=== PATIENT | female | born 1960 | race Caucasian/White ===

== ENCOUNTER 2017-05-31 12:06 | Emergency (ER) | payer OTHER ==
[~2017-05-31] VITALS: Ht 167.6 cm; Wt 56.0 kg
[2017-05-31] MEDS ORDERED: MOTRIN800 MG PO (14:51)
[2017-05-31] MEDS ORDERED: ULTRACET1 TABLET PO (14:51)
[2017-05-31] MEDS ORDERED: VALIUM2 MG PO (14:51)
[2017-05-31 15:04] VITALS: BP 149/98
== END 2017-05-31 15:08 | disposition home or self-care (01) ==
LOC: EME 12:06
DX: M54.42 Lumbago with sciatica, left side (principal); G89.29 Other chronic pain
CPT/HCPCS: 99281; 99284

== ENCOUNTER 2017-09-17 20:59 | Emergency (ER) | payer OTHER ==
[~2017-09-17] VITALS: Ht 167.6 cm; Wt 57.6 kg
[~2017-09-17 20:59] MED LIST: MOTRIN800 MG PO; ULTRACET1 TABLET PO; VALIUM2 MG PO
[2017-09-17 23:37] LABS: APPEARANCE CLEAR ((CLEAR)); BILIRUBIN NEGATIVE; BLOOD NEGATIVE; COLOR YELLOW ((YELLOW)); GLUCOSE (STRIP) NEGATIVE; KETONES NEGATIVE; LEUKOCYTES NEGATIVE; NITRITE NEGATIVE; PROTEIN (STRIP) NEGATIVE; SPECIFIC GRAVITY 1.028 (1.000-1.030); UCUL ADDED? NO
[2017-09-18 00:19] LABS: HEMATOCRIT 38.8 % (36.0-46.0); HEMOGLOBIN 13.1 G/DL (11.9-15.5); MCH 30.3 PG (29.0-34.0); MCHC 33.8 G/DL (30.0-36.0); MCV 89.8 FL (83-99); PLATELET COUNT 159 K/uL (156-360); RBC DIS.WIDTH-CV 11.6 % (11.8-14.6); RED BLOOD COUNT 4.32 M/uL (3.80-5.20); WHITE BLOOD COUNT 3.7 K/uL (4.1-10.2)
[2017-09-18 00:37] LABS: ALBUMIN 3.8 g/dL (3.2-4.8); CHLORIDE 104 mEq/L (99-109); POTASSIUM 4.3 mEq/L (3.7-5.4); SODIUM 137 mEq/L (136-147)
[2017-09-18 00:39] LABS: GLUCOSE 88 mg/dL (70-99)
[2017-09-18 00:41] LABS: TOTAL BILIRUBIN 0.4 mg/dL (0.0-1.0)
[2017-09-18 00:43] LABS: ALKALINE PHOSPHATASE 73 IU/L (3-129); CREATININE 0.7 mg/dL (0.6-1.3); GFR ESTIMATE (CALCULATED) > 59 mL/min/; TROP-I INTERPRETATION NEGATIVE; TROPONIN-I < 0.01 ng/mL (0.0-0.30)
[2017-09-18 00:44] LABS: UREA NITROGEN (BUN) 18 mg/dL (9-23)
[2017-09-18 00:45] LABS: AST (GOT) 23 IU/L (2-34)
[2017-09-18 00:46] LABS: ALT (GPT) 13 IU/L (3-49); LIPASE 13 U/L (1.0-51.0)
[2017-09-18] MEDS ORDERED: LIDODERM 5% P1 PATCH TD (00:58)
[2017-09-18] MEDS ORDERED: ULTRAM50 MG PO (01:01)
[2017-09-18 01:21] VITALS: BP 144/87
== END 2017-09-18 01:22 | disposition home or self-care (01) ==
LOC: EXP 20:59 → EME 20:59 → EXP 09-18 01:22
PROVIDERS: Nurse Practitioner Family
DX: G89.29 Other chronic pain (principal); M54.9 Dorsalgia, unspecified; R07.9 Chest pain, unspecified; R10.9 Unspecified abdominal pain; R51 Headache; M79.606 Pain in leg, unspecified; K59.00 Constipation, unspecified; R05 Cough
CPT/HCPCS: 80053; 81003; 83690; 84484; 85027; 93005; 99281; 99285

== ENCOUNTER 2018-03-29 19:43 | Emergency (ER) | payer OTHER ==
[~2018-03-29] VITALS: Ht 167.6 cm; Wt 55.9 kg
[~2018-03-29 19:43] MED LIST changes: +LIDODERM 5% P1 PATCH TD; +ULTRAM50 MG PO
[2018-03-29] MEDS ORDERED: AUGMENTIN875 MG PO (23:45)
[2018-03-29] MEDS ORDERED: FIORICET 50-301 EAC1 PO (23:45)
[2018-03-30 01:54] VITALS: BP 108/69
[2018-03-30] MEDS ORDERED: ZANTAC150 MG PO (22:53)
== END 2018-03-30 01:57 | disposition home or self-care (01) ==
LOC: EME 19:43
DX: R51 Headache (principal); J32.9 Chronic sinusitis, unspecified; G89.29 Other chronic pain
CPT/HCPCS: 70450; 99281; 99284; J1200; J1885; J2765; J7030

== ENCOUNTER 2018-03-30 19:11 | Emergency (ER) | payer OTHER ==
[~2018-03-30] VITALS: Ht 167.6 cm; Wt 56.9 kg
[~2018-03-30 19:11] MED LIST changes: +AUGMENTIN875 MG PO; +FIORICET 50-301 EAC1 PO
[2018-03-30 21:00] LABS: APPEARANCE CLEAR ((CLEAR)); BILIRUBIN NEGATIVE; BLOOD NEGATIVE; COLOR YELLOW ((YELLOW)); GLUCOSE (STRIP) NEGATIVE; KETONES NEGATIVE; LEUKOCYTES NEGATIVE; NITRITE NEGATIVE; PROTEIN (STRIP) NEGATIVE; SPECIFIC GRAVITY 1.015 (1.000-1.030); UCUL ADDED? NO; UROBILINOGEN 0.2 MG/DL (0.2-1.0)
[2018-03-30 21:24] LABS: HEMATOCRIT 35.6 % (36.0-46.0); HEMOGLOBIN 11.9 G/DL (11.9-15.5); MCH 29.4 PG (29.0-34.0); MCHC 33.4 G/DL (30.0-36.0); MCV 87.9 FL (83-99); PLATELET COUNT 172 K/uL (156-360); RBC DIS.WIDTH-CV 12.2 % (11.8-14.6); RBC DIS.WIDTH-SD 39.6 % (39-53); RED BLOOD COUNT 4.05 M/uL (3.80-5.20); WHITE BLOOD COUNT 3.9 K/uL (4.1-10.2)
[2018-03-30 21:38] LABS: CHLORIDE 102 mEq/L (99-109)
[2018-03-30 21:39] LABS: POTASSIUM 4.1 mEq/L (3.7-5.4); SODIUM 135 mEq/L (136-147)
[2018-03-30 21:41] LABS: GLUCOSE 97 mg/dL (70-99)
[2018-03-30 21:43] LABS: TOTAL BILIRUBIN 0.5 mg/dL (0.0-1.0)
[2018-03-30 21:44] LABS: ALKALINE PHOSPHATASE 63 IU/L (3-129)
[2018-03-30 21:45] LABS: CREATININE 0.6 mg/dL (0.6-1.3); GFR ESTIMATE (CALCULATED) > 59 mL/min/
[2018-03-30 21:46] LABS: AST (GOT) 25 IU/L (2-34); UREA NITROGEN (BUN) 10 mg/dL (9-23)
[2018-03-30 21:47] LABS: ALT (GPT) 15 IU/L (3-49)
[2018-03-30 21:48] LABS: LIPASE 14 U/L (1.0-51.0)
[2018-03-30 22:25] LABS: ALBUMIN 3.6 g/dL (3.2-4.8)
[2018-03-30] MEDS ORDERED: ZANTAC150 MG PO (22:53)
[2018-03-31 01:46] VITALS: BP 127/87
== END 2018-03-31 01:47 | disposition home or self-care (01) ==
LOC: EME 19:11
PROVIDERS: Physician Assistant
DX: R10.9 Unspecified abdominal pain (principal)
CPT/HCPCS: 74177; 80053; 81003; 83690; 85027; 99281; 99285

== ENCOUNTER 2018-04-12 22:07 | Emergency (ER) | payer OTHER ==
[~2018-04-12] VITALS: Ht 167.6 cm; Wt 56.6 kg
[~2018-04-12 22:07] MED LIST changes: +ZANTAC150 MG PO
[2018-04-12 23:01] LABS: HEMATOCRIT 33.1 % (36.0-46.0); HEMOGLOBIN 10.9 G/DL (11.9-15.5); MCH 29.5 PG (29.0-34.0); MCHC 32.9 G/DL (30.0-36.0); MCV 89.7 FL (83-99); PLATELET COUNT 176 K/uL (156-360); RBC DIS.WIDTH-CV 12.4 % (11.8-14.6); RBC DIS.WIDTH-SD 40.6 % (39-53); RED BLOOD COUNT 3.69 M/uL (3.80-5.20)
[2018-04-12 23:06] LABS: INTER. NORMALIZED RATIO 1.1
[2018-04-12 23:09] LABS: PTT 26.8 SEC (25-37)
[2018-04-12 23:11] LABS: CHLORIDE 108 mEq/L (99-109); POTASSIUM 3.9 mEq/L (3.7-5.4); SODIUM 139 mEq/L (136-147)
[2018-04-12 23:13] LABS: GLUCOSE 96 mg/dL (70-99)
[2018-04-12 23:17] LABS: CREATININE 0.7 mg/dL (0.6-1.3); GFR ESTIMATE (CALCULATED) > 59 mL/min/
[2018-04-12 23:18] LABS: UREA NITROGEN (BUN) 17 mg/dL (9-23)
[2018-04-13] MEDS ORDERED: MOBIC7.5 MG PO (00:30)
[2018-04-13] MEDS ORDERED: VOLTAREN 1% GE100 GM TP (00:32)
[2018-04-13 01:06] VITALS: BP 123/81
== END 2018-04-13 01:07 | disposition home or self-care (01) ==
LOC: EME 22:07
PROVIDERS: Nurse Practitioner Family
DX: S86.812A Strain of other muscle(s) and tendon(s) at lower leg level, left leg, initial encounter (principal); M79.605 Pain in left leg; D64.9 Anemia, unspecified; D72.819 Decreased white blood cell count, unspecified
CPT/HCPCS: 80048; 85027; 85610; 85730; 93971; 99281; 99284